=== PATIENT | female | born 1965 | race Caucasian/White ===

== ENCOUNTER 2020-05-22 11:55 | Emergency (ER) | payer OTHER, SELFPAY ==
[2020-05-22 12:05] VITALS: BP 118/76; PULSE 87; RESP 20; TEMP 36.2; O2SAT 99
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
== END 2020-05-22 13:33 | disposition home or self-care (01) ==
PROVIDERS: Emergency Provider Emergency Medicine; PCP Family Medicine
DX: M54.5 Low back pain (principal); G89.21 Chronic pain due to trauma
CPT/HCPCS: 99283